=== PATIENT | female | born 1960 | race Caucasian/White ===

== ENCOUNTER 2016-09-27 20:28 | Emergency (ER) | payer OTHER ==
[2016-09-27] MEDS ORDERED: ASPIRIN (CHEWABLE) 81 MG TAB PO ONE (20:33)
[2016-09-27] MEDS ORDERED: SODIUM CHLORIDE 0.9% (FLUSH) 10 ML SYG IV PRN (20:33)
--- NOTE | 2016-09-27 20:33 | ED.PDOC ---
History of Present Illness - General Chief Complaint: Chest Pain/NV Stated Complaint: as above Source: patient - History of Present Illness Initial Comments: Mayelin Brewer 55 y/o female stated that she was not feeling well this morning felt nauseated but no vomiting and tonight on getting up about 1825 h while watching tv had a feeling of someone punch him on the center of her chest and almost had fallen on her bottom on the chair then called up 911 was brought to [facility].She has seizure disorder,copd tia,asthma also on home oxygen as needed. Timing/Duration: 7-24 hours, resolved prior to arrival Severity: moderate Location: central Activities at Onset: rest Prior Chest Pain/Cardiac Workup: no prior chest pain, no prior cardiac workup Improving Factors: nothing Worsening Factors: nothing Nitro Today/Relief: no nitro taken today, provided by EMS Aspirin Treatment Today: provided at home Associated Symptoms: nausea/vomiting, shortness of breath Allergies/Adverse Reactions: Allergies Meperidine [From Demerol HCl] Allergy (Verified 09/27/16 20:39) Home Medications: Ambulatory Orders Metoprolol Tartrate 50 mg PO BID #30 tab 11/27/13 Review of Systems - Review of Systems Constitutional: States: no symptoms reported EENTM: States: no symptoms reported Respiratory: States: see HPI Cardiology: States: see HPI Gastrointestinal/Abdominal: States: no symptoms reported Genitourinary: States: no symptoms reported Musculoskeletal: States: no symptoms reported Skin: States: no symptoms reported Neurological: States: no symptoms reported Endocrine: States: no symptoms reported Hematologic/Lymphatic: States: no symptoms reported Past Medical History (General) - Patient Medical History Hx Seizures: Yes Hx Stroke: Yes - hx of tia's Hx Dementia: No Hx Asthma: Yes Hx of COPD: Yes Hx Cardiac Disorders: Yes Hx Congestive Heart Failure: Yes Hx Pacemaker: No Hx Hypertension: Yes Hx Thyroid Disease: Yes Hx Diabetes: No Hx Gastroesophageal Reflux: No Hx Renal Disease: No Hx Cancer: Yes - ovarian Hx Hepatitis C: No Surgical History: other - hysterectomy,orif left shoulder - Vaccination History Hx Tetanus, Diphtheria Vaccination: Yes Hx Influenza Vaccination: No Hx Pneumococcal Vaccination: No - Social History Hx Tobacco Use: Yes Hx Chewing Tobacco Use: Yes Hx Alcohol Use: No Hx Substance Use: No Hx Substance Use Treatment: No Hx Depression: No - Activities of Daily Living Grooming Ability: Independent Eating (Feeding) Ability: Independent Toileting Ability: Independent - Female History Patient : No Family Medical History - Family History Mother Hx Family Asthma: Yes - copd-parents Hx Cardiac Disease: Yes - dad Physical Exam - Physical Exam General Appearance: Alert, Anxious, No apparent distress Eyes, Ears, Nose, Throat Exam: PERRL/EOMI, normal ENT inspection, TMs normal, pharynx normal Neck: non-tender, full range of motion Respiratory: chest non-tender, lungs clear, normal breath sounds, no respiratory distress Cardiovascular/Chest: normal peripheral pulses, regular rate, rhythm, no edema, no gallop, no murmur Peripheral Pulses: radial,right: 2+, radial,left: 2+ Gastrointestinal/Abdominal: normal bowel sounds, non tender, soft, other - obese Extremity: normal range of motion, non-tender, normal inspection, no calf tenderness, pedal edema - +1 Neurologic: no motor/sensory deficits, normal mood/affect, oriented x 3 Skin Exam: normal color, warm/dry Lymphatic: no adenopathy Progress - Results/Orders Results/Orders: Vital Signs - 24 hr 09/27/16 09/27/16 20:41 20:49 Temperature 98.4 F Pulse Rate 96 H Pulse Rate [ 95 H 96 H left] Respiratory 22 22 Rate Blood Pressure 151/86 [left] O2 Sat by Pulse 93 L Oximetry 09/27/16 20:33 IV Care:Saline Lock per Protoc QSHIFT Telemetry ONCE URINE DRUG SCREEN, 7 ASSAY Stat Sodium Chloride 0.9% (Flush) [Saline Flush Syringe] 3 ml IV PRN PRN Oxygen Stat 09/27/16 20:35 Oxygen Delivery Assessment: QSHIFT Pulse Oximetry Assessment DAILY 09/27/16 20:45 EKG STAT 09/27/16 21:20 URINALYSIS Stat 09/27/16 21:32 TSH [THYROID STIMULATING HORMONE] Stat 09/27/16 21:33 TROPONIN-I Stat 09/28/16 09:00 Pulse Ox Daily Laboratory Results WBC 10.9 K/mm3 (4.8-10.8) H 09/27/16 20:20 RBC 5.51 M/mm3 (4.20-5.40) H 09/27/16 20:20 Hgb 13.1 gm/dL (12.0-16.0) 09/27/16 20:20 Hct 42.1 % (36.0-47.0) 09/27/16 20:20 MCV 76.3 fl (81.0-99.0) L 09/27/16 20:20 MCH 23.7 pg (27.0-31.0) L 09/27/16 20:20 MCHC 31.0 g/dL (33.0-37.0) L 09/27/16 20:20 RDW 17.8 % (11.5-14.5) H 09/27/16 20:20 Plt Count 385 K/mm3 (130-400) 09/27/16 20:20 MPV 8.6 fl (7.40-10.4) 09/27/16 20:20 Absolute Neuts (auto) 8.50 K/uL (1.8-6.8) H 09/27/16 20:20 Absolute Lymphs (auto) 1.50 K/uL (1.0-3.4) 09/27/16 20:20 Absolute Monos (auto) 0.70 K/uL (0.2-0.8) 09/27/16 20:20 Absolute Eos (auto) 0.10 K/uL (0.0-0.4) 09/27/16 20:20 Absolute Basos (auto) 0.10 K/uL (0.0-0.1) 09/27/16 20:20 Neutrophils % 77.8 % (42.0-78.0) 09/27/16 20:20 Lymphocytes % 13.5 % (20.0-50.0) L 09/27/16 20:20 Monocytes % 6.6 % (2.0-9.0) 09/27/16 20:20 Eosinophils % 1.3 % (1.0-5.0) 09/27/16 20:20 Basophils % 0.8 % (0.0-2.0) 09/27/16 20:20 PT 12.7 SECONDS (9.4-12.5) H 09/27/16 20:20 INR 1.130 09/27/16 20:20 PTT (SP) 37.4 SECONDS (25.1-36.5) H 09/27/16 20:20 D-Dimer, Quantitative < 230 ng/mL (0-230) 09/27/16 20:20 Sodium 137 mmol/L (135-145) 09/27/16 20:20 Potassium 4.3 mmol/L (3.6-5.0) 09/27/16 20:20 Chloride 100 mmol/L (101-111) L 09/27/16 20:20 Carbon Dioxide 29 mmol/L (21-31) 09/27/16 20:20 Anion Gap 12.3 (12-18) 09/27/16 20:20 BUN 14 mg/dL (7-18) 09/27/16 20:20 Creatinine 0.78 mg/dL (0.6-1.3) 09/27/16 20:20 BUN/Creatinine Ratio 17.9 (10-20) 09/27/16 20:20 Random Glucose 128 mg/dL (70-105) H 09/27/16 20:20 Serum Osmolality 275.9 mOsm/L (275-295) 09/27/16 20:20 Calcium 9.0 mg/dL (8.4-10.2) 09/27/16 20:20 Magnesium 2.1 mg/dL (1.8-2.5) 09/27/16 20:20 Creatine Kinase 69 IU/L (26-140) 09/27/16 20:20 CK-MB (CK-2) 2.6 ng/mL (0.0-4.4) 09/27/16 20:20 CK-MB (CK-2) % Not Reportable 09/27/16 20:20 Troponin I < 0.02 ng/mL (0.01-0.05) 09/27/16 20:20 B-Natriuretic Peptide 29.2 pg/ml (0-100) 09/27/16 20:20 2143 h Explained to patient her initial cardiac test were normal but needs to be repeated again she declined wants to sign ama since she has her routine sleep time wants to go home no longer having chest pain symptoms. - EKG/XRAY/CT EKG: Sinus, nonspecific ST T wave Chg Comments: HR-94 XRAY: chest - no acute abnormalities/radiologist Departure - Departure Clinical Impression: Chest discomfort Time of Disposition: 21:47 Disposition: Left Against Medical Advice Condition: Fair Referrals: Lis Katz NP [Primary Care Provider] - 1-2 Weeks Home Medications: Ambulatory Orders Metoprolol Tartrate 50 mg PO BID #30 tab 11/27/13 Additional Instructions: Advised to return to emergency room as needed
[2016-09-27 20:49] VITALS: TEMP 98.4
--- NOTE | 2016-09-27 20:53 | RAD ---
EXAM DESCRIPTION: Chest,1 View CLINICAL HISTORY: pain COMPARISON: None FINDINGS: Cardiac silhouette is within normal limits. There is no focal parenchymal or pleural disease. There are old left rib fractures. EKG leads project over the chest. There is no acute osseous process visualized. IMPRESSION: No evidence of acute cardiopulmonary disease. Electronically signed by: Bethel Figueroa MD 09/27/2016 8:53 PM CDT
[2016-09-27 21:58] VITALS: BP 153/73; O2SAT 94
== END 2016-09-27 21:45 | disposition left against medical advice (07) ==
LOC: ER 20:28
DX: R07.89 Other chest pain (principal); J44.9 Chronic obstructive pulmonary disease, unspecified; G40.909 Epilepsy, unspecified, not intractable, without status epilepticus; Z99.81 Dependence on supplemental oxygen; I11.0 Hypertensive heart disease with heart failure; I50.9 Heart failure, unspecified; E07.9 Disorder of thyroid, unspecified; Z86.73 Personal history of transient ischemic attack (TIA), and cerebral infarction without residual deficits; Z85.43 Personal history of malignant neoplasm of ovary; Z87.891 Personal history of nicotine dependence

== ENCOUNTER 2016-11-16 19:57 | Emergency (ER) | payer OTHER ==
--- NOTE | 2016-11-16 20:37 | RAD ---
EXAM DESCRIPTION: Chest,1 View CLINICAL HISTORY: 56 years Female COPD hx cough and shortness of breath COMPARISON: 09/27/2016 FINDINGS: Cardiac size appears stable. There is central pulmonary vascular congestion with diffuse bilateral alveolar infiltrates which appear worse than on the previous study. Findings suggest pulmonary edema although infectious etiology is not excluded. There is a poor degree of inspiration with elevation the right hemidiaphragm. Small effusions are not excluded in the frontal projection. No pneumothorax. IMPRESSION: Interval pulmonary vascular congestion and diffuse bilateral alveolar infiltrates which may reflect edema. Infectious etiology not excluded Electronically signed by: Yaz Taylor 11/16/2016 8:36 PM CDT
[2016-11-16] MEDS ORDERED: cefTRIAXone SODIUM 1 GM in SODIUM CHL 0.9% 50ML MIN-BAG+ 50 ML IVPB ONE (21:03)
[2016-11-16] MEDS ORDERED: AZITHROMYCIN IV 500 MG in SODIUM CHLORIDE 0.9% 250ML 250 ML IVPB ONE (21:03)
[2016-11-16] MEDS ORDERED: ASPIRIN (CHEWABLE) 81 MG TAB PO ONE (21:03)
[2016-11-16] MEDS ORDERED: HEPARIN SODIUM (PORCINE) 5,000 U/ML VIAL IV ONE (21:05)
[2016-11-16] MEDS ORDERED: CLOPIDOGREL 75 MG TAB PO ONE (21:06)
[2016-11-16] MEDS ORDERED: AZITHROMYCIN IV 500 MG VIAL IVPB ONE (21:09)
[2016-11-16] MEDS ORDERED: SODIUM CHLORIDE 0.9% 250ML 250 ML ONE (21:09)
[2016-11-16] MEDS ORDERED: ALPRAZolam 0.25 MG TAB PO ONE (21:10)
[2016-11-16] MEDS ORDERED: NITROGLYCERIN 2% 1 GM UD TOP ONE (21:10)
[2016-11-16] MEDS ORDERED: MORPHINE SULFATE INJ 10 MG/ML VIAL IV ONE (21:11)
[2016-11-16] MEDS ORDERED: HEPARIN PREMIX 25,000 UNITS in PREMIX BAG 1 BAG IVS SCH (21:15)
--- NOTE | 2016-11-16 21:16 | ED.PDOC ---
History of Present Illness - General Chief Complaint: Respiratory Problem Stated Complaint: Shortness of breathe Time Seen by Provider: 11/16/16 20:08 Source: patient Exam Limitations: no limitations - History of Present Illness Initial Comments: Patient presents with increasing shortness of breath for over one week. She also has had severe anxiety today. The dyspnea has really gotten worse over the past three days. No cough. Denies cardiac history. No hx of pedal edema. The patient is very upset and is unsure about further questions. Timing/Duration: 1 week Severity: moderate Improving Factors: nothing Worsening Factors: nothing Associated Symptoms: shortness of breath Allergies/Adverse Reactions: Allergies Meperidine [From Demerol HCl] Allergy (Verified 09/27/16 20:39) Home Medications: Ambulatory Orders Metoprolol Tartrate 50 mg PO BID #30 tab 11/27/13 Review of Systems - Review of Systems Constitutional: States: no symptoms reported EENTM: States: no symptoms reported Respiratory: States: see HPI Cardiology: States: see HPI Gastrointestinal/Abdominal: States: no symptoms reported Genitourinary: States: no symptoms reported Musculoskeletal: States: no symptoms reported Skin: States: no symptoms reported Neurological: States: no symptoms reported Endocrine: States: no symptoms reported Hematologic/Lymphatic: States: no symptoms reported Past Medical History (General) - Patient Medical History Hx Seizures: Yes Hx Stroke: Yes - hx of tia's & CVA Hx Dementia: No Hx Asthma: Yes Hx of COPD: Yes Hx Cardiac Disorders: Yes - [place] x 2 Hx Congestive Heart Failure: Yes Hx Pacemaker: No Hx Hypertension: Yes Hx Thyroid Disease: Yes Hx Diabetes: No Hx Gastroesophageal Reflux: No Hx Renal Disease: No Hx Cancer: Yes - ovarian Hx Hepatitis C: No Hx MRSA: No Surgical History: Hysterectomy - Vaccination History Hx Tetanus, Diphtheria Vaccination: Yes Hx Influenza Vaccination: No Hx Pneumococcal Vaccination: No Immunizations Up to Date: Yes - Social History Hx Tobacco Use: No Hx Chewing Tobacco Use: Yes Hx Alcohol Use: No Hx Substance Use: No Hx Substance Use Treatment: No Hx Depression: No - Activities of Daily Living Hospice Agency (if applicable):: None - Female History Patient is a Female of Child Bearing Age (10 -59 yrs old): Yes Patient : No - hysterectomy Family Medical History - Family History Mother Hx Family Asthma: Yes - copd-parents Hx Cardiac Disease: Yes - dad Physical Exam - Physical Exam General Appearance: Anxious Eye Exam: bilateral normal Ears, Nose, Throat: normal ENT inspection Neck: non-tender, full range of motion, supple Respiratory: other - distant breath sounds. No r/r/w/c Cardiovascular/Chest: normal peripheral pulses, regular rate, rhythm Gastrointestinal/Abdominal: normal bowel sounds, non tender, soft Extremity: normal range of motion, non-tender, normal inspection, no pedal edema Neurologic: other - anxious Skin Exam: normal color Progress - Progress Progress: 11/16/16 21:17 EKG read by me showed NSR with no ST changes nor T wave inversions. No LBBB. CXR showed infiltrates, possible pneumonia. wbc 16. troponin 0.1 It is possible she could have had a NSTEMI or that her heart is acutely working harder against pneumonia in the lungs. Gave Rocephin 1 gram IV x one and Azithromycin 500 mg IV x one for the pneumonia. ASA 324 mg po x one. Plavix 300 mg po x one. Heparin 5000 IU IV bolus followed by 1400 IU per hour. Simvastatin 80 mg po x one. Patient also given morphine 2 mg IV x one. She said she was not allergic to that. Also, alprazolam 0.25 mg po x one. Transferred to [facility] for cardiac evaluation. Laboratory Tests 11/16/16 11/16/16 20:30 20:30 WBC 16.0 H RBC 4.90 Hgb 11.7 L Hct 37.2 MCV 75.8 L MCH 23.8 L MCHC 31.5 L RDW 17.6 H Plt Count 299 MPV 8.3 Absolute Neuts (auto) 14.40 H Absolute Lymphs (auto) 0.60 L Absolute Monos (auto) 0.90 H Absolute Eos (auto) 0.00 Absolute Basos (auto) 0.00 Neutrophils % 90.3 H Lymphocytes % 4.0 L Monocytes % 5.4 Eosinophils % 0.1 L Basophils % 0.2 Sodium 136 Potassium 3.9 Chloride 99 L Carbon Dioxide 29 Anion Gap 11.9 L BUN 10 Creatinine 0.68 BUN/Creatinine Ratio 14.7 Random Glucose 136 H Serum Osmolality 273.1 L Calcium 8.5 Total Bilirubin 1.1 H AST 20 ALT 20 Alkaline Phosphatase 83 Creatine Kinase 68 CK-MB (CK-2) 4.1 Troponin I 0.10 H* Serum Total Protein 7.2 Albumin 3.5 Globulin 3.7 H Albumin/Globulin Ratio 0.9 L Departure - Departure Clinical Impression: NSTEMI (non-ST elevated myocardial infarction), Pneumonia Disposition: Transfer to Hospital Condition: Fair Departure Forms: ED Discharge - Pt. Copy, Patient Portal Self Enrollment Diet: other - NPO Activity: other - as per hospitalist Referrals: Lis Katz, [facility] [Primary Care Provider] - 1-2 Weeks Home Medications: Ambulatory Orders Metoprolol Tartrate 50 mg PO BID #30 tab 11/27/13
[2016-11-16] MEDS ORDERED: HEPARIN PREMIX 500 ML ONE (21:29)
[2016-11-16] MEDS ORDERED: cefTRIAXone SODIUM 1 GM VIAL ONE (21:29)
[2016-11-16] MEDS ORDERED: SODIUM CHL 0.9% 50ML MIN-BAG+ 50 ML IVPB ONE (21:30)
[2016-11-16] MEDS ORDERED: ALPRAZolam 0.25 MG TAB ONE (23:15)
[2016-11-16] MEDS ORDERED: SIMVASTATIN 20 MG TAB ONE (23:40)
[2016-11-16] MEDS ORDERED: SIMVASTATIN 20 MG TAB PO ONE (23:44)
[2016-11-17 00:01] VITALS: O2SAT 92
[2016-11-17 00:54] VITALS: BP 148/90; TEMP 97.8
[2016-11-17] MEDS ORDERED: SIMVASTATIN 20 MG TAB PO ONE (21:07)
== END 2016-11-17 00:54 | disposition short-term general hospital (02) ==
LOC: ER 19:57
DX: I21.4 Non-ST elevation (NSTEMI) myocardial infarction (principal); I11.0 Hypertensive heart disease with heart failure; I50.9 Heart failure, unspecified; I25.2 Old myocardial infarction; E07.9 Disorder of thyroid, unspecified; Z85.43 Personal history of malignant neoplasm of ovary; Z86.73 Personal history of transient ischemic attack (TIA), and cerebral infarction without residual deficits; Z87.891 Personal history of nicotine dependence; Z79.899 Other long term (current) drug therapy; Z88.8 Allergy status to other drugs, medicaments and biological substances
CPT/HCPCS: 36415; 71010; 80053; 82550; 82553; 83605; 83880; 84436; 84443; 84484; 85025; 85610; 85730; 87040; 93005; J0456; J0696; J1644; J2270; J7050

== ENCOUNTER → 2017-03-14 | Outpatient (CLI) | payer OTHER | END | disposition home or self-care (01) | LOC: BFHJ 13:29 | PROVIDERS: ATTEND Family Medicine | DX: E03.9 Hypothyroidism, unspecified (principal) ==

== ENCOUNTER → 2017-04-26 | Outpatient (CLI) | payer OTHER | END | disposition home or self-care (01) | LOC: SOLHO 13:06 | PROVIDERS: ATTEND Family Medicine | DX: R06.02 Shortness of breath (principal); Z99.81 Dependence on supplemental oxygen ==